=== PATIENT | female | born 1945 | race Hispanic/Latino ===

== ENCOUNTER 2017-10-06 06:34 | Emergency (ER) | payer SELFPAY ==
[2017-10-06 07:13] LABS: BASO % 0.8 % (0.0-2.0); EOS # 0.2 K/uL (0.0-0.7); EOS % 2.9 % (0.0-4.0); HEMOGLOBIN 13.8 g/dL (11.0-16.0); LYMPH # 1.3 K/uL (1.0-4.3); MEAN CELL VOLUME 87.1 fL (81.0-99.0); MEAN CORPUSCULAR HEMOGLOBIN 29.9 pg (27.0-31.0); MEAN CORPUSCULAR HGB CONC 34.3 g/dL (33.0-37.0); MONO # 0.4 K/uL (0.0-0.8); NEUT # 4.1 K/uL (1.8-7.0); NEUT % 67.3 % (50.0-75.0); RBC 4.61 Mil/uL (3.80-5.20); RED CELL DISTRIBUTION WIDTH 14.2 % (11.5-14.5); WHITE BLOOD COUNT 6.1 K/uL (4.8-10.8)
[2017-10-06 07:23] LABS: INR 1.1; PROTHROMBIN TIME 12.5 SECONDS (9.7-12.2)
[2017-10-06 07:35] LABS: ALB/GLOB RATIO 1.5 (1.0-2.1); ALBUMIN 4.1 g/dL (3.5-5.0); ALT/SGPT 34 U/L (9-52); AST/SGOT 46 U/L (14-36); BLOOD UREA NITROGEN 14 mg/dL (7-17); CALCIUM 9.1 mg/dl (8.6-10.4); GFR AFRICAN-AMERICAN > 60; GFR NON-AFRICAN AMERICAN > 60
--- NOTE | 2017-10-06 07:39 | C.PDOC ---
History Of Present Illness 71 y/o female presents to ED with c/o palpitations since last night with associated fluttering in chest. Patient states she checked her pulse and was in the 120s and uneven, took blood pressure and was elevated. Patient states she is here because she is helping mother because aunt 2 weeks ago and has taken a lot of responsibility, states she is going under a lot of stress. Patient reports similar episode 1 year ago, saw PMD and was given anticoagulation immediately and noted to need adenosine for heart to reset, patient was taken of medication and is currently only on baby aspirin. Patient admits to headache and denies chest pain, sob or any other complaints at this time. Time Seen by Provider: 10/06/17 07:01 Chief Complaint (Nursing): Palpitations History Per: Patient History/Exam Limitations: no limitations Onset/Duration Of Symptoms: Days Current Symptoms Are (Timing): Still Present Associated Symptoms: Headache Past Medical History Reviewed: Historical Data, Nursing Documentation, Vital Signs Vital Signs: Last Vital Signs Temp 97.5 F L 10/06/17 06:42 Pulse 72 10/06/17 07:21 Resp 16 10/06/17 07:21 BP 141/86 10/06/17 07:21 Pulse Ox 98 10/06/17 07:52 - Medical History PMH: No Chronic Diseases Surgical History: No Surg Hx Family History: States: No Known Family Hx - Social History Hx Alcohol Use: No Hx Substance Use: No - Immunization History Hx Tetanus Toxoid Vaccination: Yes Hx Influenza Vaccination: Yes Hx Pneumococcal Vaccination: No Review Of Systems Constitutional: Negative for: Fever, Chills Cardiovascular: Positive for: Palpitations. Negative for: Chest Pain Respiratory: Negative for: Shortness of Breath Neurological: Positive for: Headache Physical Exam - Physical Exam Appears: Non-toxic, No Acute Distress Skin: Warm, Dry, No Rash Head: Atraumatic, Normacephalic Eye(s): bilateral: Normal Inspection Oral Mucosa: Moist Neck: Normal ROM, Supple Chest: Symmetrical Cardiovascular: Rhythm Regular Respiratory: Normal Breath Sounds, No Rales, No Rhonchi, No Wheezing Gastrointestinal/Abdominal: Soft, No Tenderness, No Guarding, No Rebound Extremity: Normal ROM, No Pedal Edema, Capillary Refill (<2 seconds) Neurological/Psych: Oriented x3, Normal Speech, Normal Cognition ED Course And Treatment - Laboratory Results Result Diagrams: 10/06/17 07:09 10/06/17 07:09 ECG: Interpreted By Me, Viewed By Me ECG Rhythm: Sinus Rhythm, L BBB ECG Interpretation: No Acute Changes Rate From EC (BPM) O2 Sat by Pulse Oximetry: 98 (RA) Pulse Ox Interpretation: Normal Medical Decision Making Medical Decision Making: Plan: EKG, Labs Disposition Counseled Patient/Family Regarding: Studies Performed, Diagnosis - Disposition Referrals: Walter Arnold MD [Staff Provider] - Disposition: HOME/ ROUTINE Disposition Time: 08:43 Condition: STABLE Instructions: Paroxysmal Supraventricular Tachycardia (DC) Forms: [facility] (H[place]er), General Discharge Instructions - POA Present On Arrival: None - Clinical Impression Clinical Impression: Atrial arrhythmia - Scribe Statement The provider has reviewed the documentation as recorded by the Scribsilvina Caballero All medical record entries made by the Scribe were at my direction and personally dictated by me. I have reviewed the chart and agree that the record accurately reflects my personal performance of the history, physical exam, medical decision making, and the department course for this patient. I have also personally directed, reviewed, and agree with the discharge instructions and disposition.
[2017-10-06 09:12] VITALS: BP 132/84; PULSE 78; RESP 17; TEMP 98.6; O2SAT 97
--- NOTE | 2017-10-07 13:09 | CARD ---
APPROVED REPORT EKG Measurement Heart [id number] <Conclusion> Normal sinus rhythm with sinus arrhythmia Left axis deviation Left bundle branch block Abnormal ECG
== END 2017-10-06 09:16 | disposition home or self-care (01) ==
LOC: C.ER 06:34
DX: I49.8 Other specified cardiac arrhythmias (principal)